=== PATIENT | female | born 1965 | race Caucasian/White ===

== ENCOUNTER 2017-11-23 13:59 | Emergency (ER) | payer OTHER ==
[~2017-11-23] VITALS: Ht 160 cm; Wt 76.2 kg
[~2017-11-23 13:59] MED LIST: ZOFRAN ODT4 MG PO
[2017-11-23] MEDS ORDERED: PREDNISONE 20 M20 MG PO ×2 (14:20→16:09)
[2017-11-23] MEDS ORDERED: FLEXERIL PO (14:21)
[2017-11-23] MEDS ORDERED: SYNTHROID100 MC1 PO (14:21)
[2017-11-23 15:23] LABS: CREATININE 0.7 mg/dL (0.6-1.0); POTASSIUM 3.9 mmol/L (3.5-5.1)
[2017-11-23 15:59] VITALS: BP 123/69
[2017-11-23] MEDS ORDERED: HYDROCODONE-AP1 EAC6 PO (16:09)
== END 2017-11-23 16:21 | disposition home or self-care (01) ==
LOC: ER 13:59
PROVIDERS: Emergency Medicine
DX: M79.652 Pain in left thigh (principal)